=== PATIENT | female | born 1965 | race Two or more races ===

== ENCOUNTER 2019-10-05 07:34 | Outpatient (CLI) | payer OTHER | END 2019-10-05 07:38 | disposition home or self-care (01) | LOC: SONOGRAMA 07:34 | DX: R10.10 Upper abdominal pain, unspecified (principal); K30 Functional dyspepsia ==

== ENCOUNTER 2020-05-11 15:57 | Emergency (ER) | payer OTHER ==
[~2020-05-11] VITALS: Ht 170.2 cm; Wt 79.8 kg
[2020-05-11] MEDS ORDERED: AMOX-CLAV 875-1 EACH PO (16:51)
[2020-05-11] MEDS ORDERED: LISINOPRIL-HCT1 EACH PO (16:51)
[2020-05-11] MEDS ORDERED: ZOFRAN8 MG PO (21:55)
[2020-05-11] MEDS ORDERED: LEVSIN/SL0.125 MG SL (21:55)
== END 2020-05-11 22:31 | disposition home or self-care (01) ==
LOC: ER 15:57
DX: U07.1 COVID-19 (principal); R10.84 Generalized abdominal pain; R11.2 Nausea with vomiting, unspecified

== ENCOUNTER 2020-11-08 17:10 | Emergency (ER) | payer OTHER ==
[~2020-11-08] VITALS: Ht 170.2 cm; Wt 80.3 kg
[~2020-11-08 17:10] MED LIST: AMOX-CLAV 875-1 EACH PO; LEVSIN/SL0.125 MG SL; LISINOPRIL-HCT1 EACH PO; ZOFRAN8 MG PO
[2020-11-08] MEDS ORDERED: LIPITOR80 MG (17:22)
== END 2020-11-08 21:10 | disposition home or self-care (01) ==
LOC: ER 17:10
DX: J31.2 Chronic pharyngitis (principal); Z11.52 Encounter for screening for COVID-19

== ENCOUNTER 2023-03-21 12:42 | Emergency (ER) | payer OTHER ==
[~2023-03-21] VITALS: Ht 170.2 cm; Wt 80.7 kg
[~2023-03-21 12:42] MED LIST changes: +LIPITOR80 MG
[2023-03-21 16:24] LABS: HEMATOCRIT 39.3 % (36.0-45.00); HEMOGLOBIN 13.2 g/dL (12.0-15.00); MEAN CELL VOLUME 81.7 fL (80.00-100.00); MEAN CORPUSCULAR HEMOGLOBIN 27.5 pg (27.00-32.0); MEAN CORPUSCULAR HGB CONC 33.7 g/dl (32.0-36.0); PLATELET COUNT 520 K/uL (150-450); RED BLOOD COUNT 4.81 M/uL (4.00-6.00); RED CELL DISTRIBUTION WIDTH 14.7 % (11.5-14.5)
[2023-03-21 16:36] LABS: PH,URINE 6.5 (5.0-8.0); URINE APPEARANCE Clear; URINE BILIRRUBIN Negative (NEGATIVE); URINE BLOOD Negative; URINE COLOR Yellow; URINE GLUCOSE Negative (NEGATIVE); URINE LEUKOCYTE Trace; URINE NITRATE Negative; URINE PROTEIN Negative (NEGATIVE); URINE UROBILINOGEN 0.2 E.U./dl
[2023-03-21 16:39] LABS: URINE BACTERIA 25.1 uL (0.0-1933); URINE EPITHELIAL CELLS 1.5 uL (0.0-38.8); URINE WBC 14.3 uL (0.0-23.2)
== END 2023-03-21 19:08 | disposition home or self-care (01) ==
LOC: ER 12:42
PROVIDERS: General Practice
DX: B34.9 Viral infection, unspecified (principal); Z20.822 Contact with and (suspected) exposure to COVID-19